=== PATIENT | female | born 1970 | race Two or more races ===

== ENCOUNTER 2023-03-14 20:00 | Emergency (ER) | payer SELFPAY ==
[~2023-03-14] VITALS: Ht 157.5 cm; Wt 65.9 kg
[2023-03-14 21:50] VITALS: BP 139/79; PULSE 72; RESP 17; TEMP 98
[2023-03-14] MEDS ORDERED: IBUPROFEN 600 MG TABLET PO ONE (22:00)
[2023-03-14] MEDS ORDERED: IBUP-1506 PO (22:12)
== END 2023-03-14 22:26 | disposition home or self-care (01) ==
LOC: EMS 20:01
DX: M25.572 Pain in left ankle and joints of left foot (principal); E11.9 Type 2 diabetes mellitus without complications
CPT/HCPCS: 99283